=== PATIENT | male | born 1970 | race Caucasian/White ===

== ENCOUNTER 2021-04-04 18:16 | Outpatient (CLI) | payer OTHER, SELFPAY ==
[2021-04-04 18:20] VITALS: BP 121/76; PULSE 88; RESP 16; TEMP 38.7; O2SAT 96; BMI 29.8
--- NOTE | 2021-04-04 18:23 | NURSING ---
PT HAS TEMP 101.6. TOOK TYLENOL AT HOME PRIOR TO ARRIVAL.
[2021-04-04] MEDS: 0.9% Saline Lock 10 ML Syringe IV (18:26)
[2021-04-04 19:02] VITALS: BP 112/63; PULSE 79; RESP 16; TEMP 38.2; O2SAT 94
[2021-04-04 20:00] VITALS: BP 114/67; PULSE 79; RESP 16; TEMP 37.2; O2SAT 97
== END 2021-04-04 20:01 | disposition home or self-care (01) ==
LOC: MS3OUT 18:16 → MS3 18:17
PROVIDERS: Referring Provider Nurse Practitioner Adult Health; Visit Provider Nurse Practitioner Adult Health
DX: Z23 Encounter for immunization (principal); U07.1 COVID-19
CPT/HCPCS: J7050; M0245; Q0245; A4216